=== PATIENT | female | born 1985 | race Caucasian/White ===

== ENCOUNTER 2017-07-10 11:42 | Emergency (ER) | payer BC ==
[2017-07-10 12:25] VITALS: BP 139/89
[2017-07-10] MEDS ORDERED: Albuterol/Ipratropium NEB.SOL* Albuterol 2.5 MG/Ipratropium 0.5 MG 3 ML INH ONE (12:46)
--- NOTE | 2017-07-10 12:52 | ED ---
Respiratory - HPI Summary HPI Summary: 32 yr old female with the complaint of cough, onset two weeks ago, persistent and non productive. She denies runny nose, sore throat, and post nasal drip. She feels like she is sob and wheezing and has associated tightness in chest with coughing spells. 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 She is a smoker but no cigarettes in two weeks since getting ill. She has associated body aches, fever, chills. - History of Current Complaint Chief Complaint: UCRespiratory Stated Complaint: HEAVY CHEST,CONGESTION Time Seen by Provider: 07/10/17 12:40 - Allergy/Home Medications Allergies/Adverse Reactions: Allergies Allergy/AdvReac Type Severity Reaction Status Date / Time Gluten Meal Allergy GI Upset Verified 07/10/17 12:17 Nickel Allergy Rash Verified 07/10/17 12:17 Penicillins Allergy Hives Verified 07/10/17 12:17 Home Medications: Home Medications Copper (Iud) [[facility]] 1 iud IU 07/10/17 [History] Naproxen TAB* [Naprosyn 250 mg TAB*] 500 mg PO Q8H PRN 07/10/17 [History Confirmed 07/10/17] [id number] W/ APAP [Cold & Flu Severe 0-19-064-325 mg] 1 tab PO PRN [History] PMH/Surg Hx/FS Hx/Imm Hx - Surgical History Surgery Procedure, Year, and Place: LIGAMENT REPAIR RIGHT WRIST Infectious Disease History: No Infectious Disease History: Denies: Traveled Outside the [place] in Last 30 Days - Family History Known Family History: Positive: Hypertension - Social History Alcohol Use: None Substance Use Type: Reports: None Smoking Status (MU): Never Smoked Tobacco Review of Systems Positive: Fever, Chills, Fatigue Positive: Shortness Of Breath, Cough Positive: Myalgia All Other Systems Reviewed And Are Negative: Yes Physical Exam Triage Information Reviewed: Yes Vital Signs On Initial Exam: Initial Vitals Temp Pulse Resp BP Pulse Ox 98.9 F 94 18 139/89 97 07/10/17 12:19 07/10/17 12:19 07/10/17 12:19 07/10/17 12:19 07/10/17 12:19 Vital Signs Reviewed: Yes Appearance: Positive: Well-Appearing, No Pain Distress Skin: Positive: Warm Head/Face: Positive: Normal Head/Face Inspection Eyes: Positive: EOMI ENT: Positive: Normal ENT inspection, Pharynx normal Neck: Positive: Supple, Nontender Respiratory/Lung Sounds: Positive: Wheezes - bilateral but more in the left base. Cardiovascular: Positive: RRR. Negative: Murmur Abdomen Description: Positive: Nontender Musculoskeletal: Positive: Strength/ROM Intact Neurological: Positive: Sensory/Motor Intact, Alert, Oriented to Person Place, Time, CN Intact II-III Psychiatric: Positive: Normal - Irma Coma Scale Best Eye Response: 4 - Spontaneous Best Motor Response: 6 - Obeys Commands Best Verbal Response: 5 - Oriented Diagnostics - Vital Signs Vital Signs Temp Pulse Resp BP Pulse Ox 07/10/17 12:19 98.9 F 94 18 139/89 97 - Laboratory Lab Statement: Any lab studies that have been ordered have been reviewed, and results considered in the medical decision making process. - Radiology chest xray Xray Interpretation: Positive (See Comments) - right lower lobe pneumonia Radiology Interpretation Completed By: Radiologist Disposition - Course Course Of Treatment: 32 yr old with SOB, coughing. penumonia on chest xray. Rx with doxycycline, and also nebs and steroids. - Diagnoses Provider Diagnoses: Pneumonia, Bronchospasm, Hypertension Discharge - Discharge Plan Condition: Good Disposition: HOME Prescriptions: Albuterol HFA INHALER* [Ventolin HFA Inhaler*] 1 - 2 puff INH Q6H PRN #1 mdi PRN Reason: Cough Doxycycline (Monohydrate) [Doxycycline Monohydrate] 100 mg PO BID #20 cap predniSONE TAB* [Deltasone TAB*] 40 mg PO DAILY #8 tab Patient Education Materials: Hypertension (ED), Pneumonia (ED), Asthma (ED) Referrals: Jayne Tolentino [Primary Care Provider] -
--- NOTE | 2017-07-10 13:07 | RAD ---
Indication: Chest pain. 2 views of the chest demonstrates airspace disease and consolidation of the right lower lobe. Left lung field is clear. No mediastinal shift is noted. IMPRESSION: Pneumonia in the right lower lobe.
== END 2017-07-10 13:27 | disposition home or self-care (01) ==
LOC: UCCORT 11:42
DX: J18.9 Pneumonia, unspecified organism (principal); J98.01 Acute bronchospasm; I10 Essential (primary) hypertension; Z88.0 Allergy status to penicillin
CPT/HCPCS: 71020; 99212; A9270-GY; G0463

== ENCOUNTER 2017-07-28 17:12 | Emergency (ER) | payer BC ==
[2017-07-28 17:46] VITALS: BP 119/62
--- NOTE | 2017-07-28 18:21 | ED ---
Respiratory - HPI Summary HPI Summary: 32 YEAR OLD FEMALE PRESENTS WITH COMPLAINS OF COUGH. SHE WAS RECENTLY TREATED FOR PNEUMONIA ON 07/10/17. - History of Current Complaint Chief Complaint: UCGeneralIllness Stated Complaint: UPPER RESPIRATORY Time Seen by Provider: 07/28/17 18:12 Hx Obtained From: Patient Onset/Duration: Sudden Onset Initial Severity: Moderate Current Severity: Moderate Character: Cough (Productive) - Allergy/Home Medications Allergies/Adverse Reactions: Allergies Allergy/AdvReac Type Severity Reaction Status Date / Time Gluten Meal Allergy GI Upset Verified 07/28/17 17:37 Nickel Allergy Rash Verified 07/28/17 17:37 Penicillins Allergy Hives Verified 07/28/17 17:37 PMH/Surg Hx/FS Hx/Imm Hx Previously Healthy: Yes - Surgical History Surgery Procedure, Year, and Place: LIGAMENT REPAIR RIGHT WRIST Infectious Disease History: No Infectious Disease History: Denies: Traveled Outside the [place] in Last 30 Days - Family History Known Family History: Positive: Hypertension - Social History Alcohol Use: None Substance Use Type: Reports: None Smoking Status (MU): Former Smoker Type: Cigarettes Length of Time of Smoking/Using Tobacco: 1 cig/day Have You Smoked in the Last Year: Yes Review of Systems Constitutional: Negative Eyes: Negative ENT: Negative Cardiovascular: Negative Positive: Cough Gastrointestinal: Negative Genitourinary: Negative Musculoskeletal: Negative Skin: Negative Neurological: Negative All Other Systems Reviewed And Are Negative: Yes Physical Exam Triage Information Reviewed: Yes Vital Signs On Initial Exam: Initial Vitals Temp Pulse Resp BP Pulse Ox 36.9 C 86 16 119/62 100 07/28/17 17:38 07/28/17 17:38 07/28/17 17:38 07/28/17 17:38 07/28/17 17:38 Appearance: Positive: Well-Appearing Skin: Positive: Warm Head/Face: Positive: Normal Head/Face Inspection Eyes: Positive: Normal ENT: Positive: Nasal congestion, Nasal drainage Neck: Positive: Supple Respiratory/Lung Sounds: Positive: Clear to Auscultation Cardiovascular: Positive: Normal Abdomen Description: Positive: Nontender Bowel Sounds: Positive: Present Diagnostics - Vital Signs Vital Signs Temp Pulse Resp BP Pulse Ox 07/28/17 17:38 36.9 C 86 16 119/62 100 - Laboratory Lab Statement: Any lab studies that have been ordered have been reviewed, and results considered in the medical decision making process. Disposition - Diagnoses Provider Diagnoses: Bronchitis Discharge - Discharge Plan Condition: Stable Disposition: HOME Prescriptions: Albuterol/Ipratropium RESP(NF) [Combivent Respimat(NF)] 1 aer IN QID PRN #1 aer PRN Reason: Cough Azithromyxin REINA (NF) [Z-Reina (Zithromax) 250 mg tabs #6] 2 tab PO .TODAY, THEN 1 DAILY #6 tab Benzonatate CAP* [Tessalon 100 MG CAP*] 100 mg PO TID #30 cap Promethazine-Dm [Promethazine/Dextromethor 6.25-15 mg/5Ml] 1 teasp PO Q6HR PRN # 120 ml PRN Reason: Cough Patient Education Materials: Bronchospasm (ED), Acute Cough (ED), Wheezing (ED) Referrals: Claire Stein PA [Primary Care Provider] -
--- OUTSIDE RECORDS SUMMARY | 2017-07-31 09:43 | XMS REPORT ---
:1985 External Reference #:[id number] Author Organization [facility] Address [address] [address] Phone [phone] Care Team Providers Name Role Phone Claire Stein PA Care Team Information [employer] Unavailable Payers Type Date Identification Numbers Payment Provider Subscriber Health Maintenance Effective: Policy Number: BCBS Ppo Sera Pierce Organization (O) 03/14/2015 [id number] PayID: [id number] [address] [address] [place] [address] Problems Description No Information Family History Date Family Member(s) Problem(s) Comments Father Hypertension Father Hypercholesterolemia Mother Hypertension Mother Hyperlipidemia Mother Celiac Disease Social History Type Date Description Comments 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 Cigarette Use Light tobacco smoker (10 or fewer 3 cigarettes/week - has smoked cigarettes/day) on and off for about 15 years, at most 1 cigarette/day ETOH Use Occasionally consumes alcohol Smoking Patient is a current smoker, smokes some days Daily Caffeine Consumes on average 1 cup of coffee per day Daily Caffeine Consumes on average 1 cup of tea per day Allergies, Adverse Reactions, Alerts Date Description Reaction Status Severity Comments 05/10/2017 Penicillin active Medications Medication Date Status Form Strength Qnty SIG Indications Ordering Provider No Active 05/10/2017 Active Mckeon, Medications DO Quinten Immunizations CPT Code Status Date Vaccine Lot # [id number] Given 05/10/2017 Tdap (Adacel) Ages 7 And Above Only [id number] Vital Signs Date Vital Result Comment 07/17/2017 Body Temperature 98.6 F Weight 89.00 lb Heart Rate 90 /min BP Systolic 130 mmHg BP Diastolic 76 mmHg Height 59.75 inches 4'11.75" O2 % BldC Oximetry 98 % BMI (Body Mass Index) 17.5 kg/m2 05/10/2017 Body Temperature 99.0 F Weight 94.00 lb Heart Rate 68 /min BP Systolic 110 mmHg BP Diastolic 64 mmHg Respiratory Rate 18 /min Height 59.75 inches 4'11.75" BMI (Body Mass Index) 18.5 kg/m2 Results Test Date Test Result H/L Range Note Hemoglobin A1c 06/16/2017 Hemoglobin A1c 5.1 % 4.1-5.9 Estimated Average Glucose Calc 100 71-140 Basic (BMP) 06/16/2017 Sodium 141 mmol/L 135-146 1 Potassium 4.1 mmol/L 3.5-5.2 Chloride# 103 mmol/L 97-110 2 Carbon Dioxide 25 mmol/L 24-34 Glucose 91 mg/dL 70-105 Creatinine 0.7 mg/dL 0.5-1.4 Calcium 9.5 mg/dL 8.5-10.2 Non Arcelia Egfr >60 >60 3 Arcelia Egfr >60 >60 4 Anion Gap 13 mmol/L 7-16 5 BUN 8 mg/dL 6-26 Lipid 05/11/2017 Cholesterol 138 mg/dL 50-199 Triglycerides 47 mg/dL 30-200 HDL 71 mg/dL 35-85 6 Chol/ HDL Ratio 2.0 ratio Low 3.7-5.6 VLDL 9 mg/dL 2-29 LDL (Calc) 58 mg/dL 20-99 7 CBC With Auto Diff 05/11/2017 WBC 8.5 K/uL 4.1-11.0 RBC 4.37 M/uL 4.00-5.40 Hemoglobin 13.6 gm/dL 12.0-16.0 Hematocrit 40.3 % 36.0-47.0 MCV 92.2 fL 80.0-97.0 MCH 31.1 pg 27.0-32.0 MCHC 33.7 g/dL 32.0-36.0 RDW 13.8 % 11.5-14.5 PLT Count 382 K/ul 140-400 MPV 9.2 FL 7.1-10.7 Neutrophil 74.9 % 35.0-75.0 Lymphocyte 17.7 % 16.0-52.0 Monocyte 6.6 % 2.0-10.0 Eosinophil 0.3 % 0.0-5.0 Basophil 0.5 % 0.0-4.0 Abs Neutrophils 6.4 K/uL 2.1-8.0 Abs Lymphocytes 1.5 K/uL 0.8-5.5 Abs Monocytes 0.6 K/uL 0.1-1.0 Abs Eosinophils 0.0 K/uL 0.0-0.5 Abs Basophils 0.0 K/uL 0.0-0.3 Basic (BMP) 05/11/2017 Sodium 138 mmol/L 135-146 8 Potassium 4.7 mmol/L 3.5-5.2 Chloride# 101 mmol/L 97-110 9 Carbon Dioxide 25 mmol/L 24-34 Glucose 126 mg/dL High 70-105 BUN 11 mg/dL 6-26 Creatinine 0.8 mg/dL 0.5-1.4 Calcium 9.7 mg/dL 8.5-10.2 Non Arcelia Egfr >60 >60 10 Arcelia Egfr >60 >60 11 Anion Gap 12 mmol/L 7-16 12 Laboratory test finding 05/11/2017 TSH 0.84 uIU/mL 0.35-4.94 1 Updated reference range on new analyzer 2 Updated reference range on new analyzer 3 Concerning GFR Guidelines: Normal function or mild renal disease, if clinically at risk: >/=60 mL/min Moderately decreased: 30-59 Severely decreased: 15-29 Renal failure: <15 Glomerular Filtration Rate (GFR) is estimated based on the MDRD equation, which assumes a steady state for creatinine as recommended by the National Kidney Disease Education Program in conjunction with the National Institutes of Health and the National Kidney Foundation. Clinical conditions in which it may be necessary to measure GFR by using clearance methods include extremes of age and body size, severe malnutrition or obesity, diseases of skeletal muscle, paraplegia or quadriplegia, vegetarian diet, rapidly changing kidney function, and calculation of the dose of potentially toxic drugs that are excreted by the kidneys. 4 Concerning GFR Guidelines for Americans: Normal function or mild renal disease, if clinically at risk: >/=60 mL/min Moderately decreased: 30-59 Severely decreased: 15-29 Renal failure: <15 5 Updated reference range on new analyzer 6 Per NCEP ATP III Guidelines: Results lower than 40 mg/dL are suggestive of increased risk for coronary artery disease. Results > or=to 60 mg/dL are considered a negative risk factor. 7 Per NCEP ATP III Guidelines: Normal Population <130 Patients with medical conditions: CHD/DM Optimal: <100 Borderline high: 130-159 High: 160-189 Very high: >189 8 Updated reference range on new analyzer 9 Updated reference range on new analyzer 10 Concerning GFR Guidelines: Normal function or mild renal disease, if clinically at risk: >/=60 mL/min Moderately decreased: 30-59 Severely decreased: 15-29 Renal failure: <15 Glomerular Filtration Rate (GFR) is estimated based on the MDRD equation, which assumes a steady state for creatinine as recommended by the National Kidney Disease Education Program in conjunction with the National Institutes of Health and the National Kidney Foundation. Clinical conditions in which it may be necessary to measure GFR by using clearance methods include extremes of age and body size, severe malnutrition or obesity, diseases of skeletal muscle, paraplegia or quadriplegia, vegetarian diet, rapidly changing kidney function, and calculation of the dose of potentially toxic drugs that are excreted by the kidneys. 11 Concerning GFR Guidelines for Americans: Normal function or mild renal disease, if clinically at risk: >/=60 mL/min Moderately decreased: 30-59 Severely decreased: 15-29 Renal failure: <15 12 Updated reference range on new analyzer Procedures Date CPT Code Description Status 07/17/2017 93132 Measure Blood Oxygen Level Single Determination Completed Encounters Type Date Location Provider CPT E/M Dx Office Visit 05/10/2017 3:00p [facility] [place] [address] Z00.00 Z23 F17.210 Plan of Care Future Appointment(s):08/09/2017 11:30 am - Schedule, Xray at [facility]05/11/2018 3: 00 pm - Claire Stein PA at [facility]07/17/2017 - Claire Stein PAJ18.9 Pneumonia, unspecified organismNew Xrays:Chest, 2 ViewsComments:Pneumonia-- appears improvedCall for increased shortness of breath, cough, recurrent fever, any concerns. Recheck xray one month after the last was done to make sure the findings resolveFollow up:3 weeks repeat CXR
== END 2017-07-28 18:33 | disposition home or self-care (01) ==
LOC: UCCORT 17:12
DX: J40 Bronchitis, not specified as acute or chronic (principal); Z87.891 Personal history of nicotine dependence
CPT/HCPCS: 99212; G0463